=== PATIENT | male | born 1975 | race Caucasian/White ===

== ENCOUNTER 2016-11-01 14:29 | Outpatient (CLI) ==
[2016-11-01 15:04] LABS: BASOPHILS # (AUTO) 0.1 K/uL (0-0.2); BASOPHILS % (AUTO) 1.1 % (0.0-3.0); EOSINOPHILS # (AUTO) 0.6 K/ul (0.0-0.7); EOSINOPHILS % (AUTO) 4.9 % (0.0-7.0); HEMATOCRIT 42.5 % (42.0-52.0); HEMOGLOBIN 14.5 g/dl (14.0-18.0); IMMATURE GRANULOCYTE % (AUTO) 0.3 % (0.0-5.0); LYMPHOCYTES % (AUTO) 34.9 (10.0-50.0); MEAN CORPUSCULAR HEMOGLOBIN 31.5 pg (27.0-31.0); MEAN CORPUSCULAR HGB CONC 34.1 (31.8-35.4); MEAN CORPUSCULAR VOLUME 92.4 fl (80.0-94.0); MONOCYTES # (AUTO) 0.8 K/uL (0.4-2.0); MONOCYTES % (AUTO) 7.3 (0-10); NEUTROPHILS # (AUTO) 5.9 K/ul (2.0-6.9); NEUTROPHILS % (AUTO) 51.5; PLATELET COUNT 244 10^3/uL (140-440); WHITE BLOOD COUNT 11.36 K/ul (4.2-10.2)
--- NOTE | 2016-11-01 15:25 | DI ---
Two radiographic images of the chest. Comparison: None available. Reason for study: Shortness of breath. FINDINGS: No pneumothorax, pleural effusion, or focal consolidation. The cardiac silhouette is wit hin normal limits. 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 Impression: No acute cardiopulmonary findings.
[2016-11-01 15:42] LABS: ALBUMIN 3.7 g/dL (3.4-5.0); ALBUMIN/GLOBULIN RATIO 0.97; ANION GAP 14.4; BILIRUBIN,TOTAL 0.22 mg/dL (0.00-1.20); BUN/CREATININE RATIO 21.05; CALCIUM 9.3 mg/dL (8.2-10.2); CHOL/HDL RATIO 6.6 (4.5-6.4); CREATININE 0.95 mg/dL (0.60-1.10); POTASSIUM 4.4 mmol/L (3.5-5.1); TOTAL PROTEIN 7.5 g/dL (6.4-8.2)
== END 2016-11-01 14:30 | disposition home or self-care (01) ==
LOC: CAR 14:29
PROVIDERS: ATTEND Internal Medicine
DX: R05 Cough (principal); R06.02 Shortness of breath; E78.5 Hyperlipidemia, unspecified; I10 Essential (primary) hypertension
CPT/HCPCS: 36415; 80053; 80061; 83036; 84443; 85025; 93005; 93010

== ENCOUNTER 2017-05-23 09:34 | Outpatient (CLI) ==
[2017-05-23 09:46] LABS: BASOPHILS # (AUTO) 0.1 K/uL (0-0.2); BASOPHILS % (AUTO) 1.2 % (0.0-3.0); EOSINOPHILS # (AUTO) 0.5 K/ul (0.0-0.7); EOSINOPHILS % (AUTO) 5.4 % (0.0-7.0); HEMATOCRIT 43.4 % (42.0-52.0); HEMOGLOBIN 14.8 g/dl (14.0-18.0); IMMATURE GRANULOCYTE % (AUTO) 0.2 % (0.0-5.0); LYMPHOCYTES # (AUTO) 3.1 K/uL (0.60-3.4); LYMPHOCYTES % (AUTO) 34.3 (10.0-50.0); MEAN CORPUSCULAR HEMOGLOBIN 31.3 pg (27.0-31.0); MEAN CORPUSCULAR HGB CONC 34.1 (31.8-35.4); MEAN CORPUSCULAR VOLUME 91.8 fl (80.0-94.0); MONOCYTES # (AUTO) 0.6 K/uL (0.4-2.0); NEUTROPHILS # (AUTO) 4.6 K/ul (2.0-6.9); NEUTROPHILS % (AUTO) 51.9; PLATELET COUNT 224 10^3/uL (140-440); RED BLOOD COUNT 4.73 10^6/ul (4.70-6.10); WHITE BLOOD COUNT 8.89 K/ul (4.2-10.2)
[2017-05-23 10:27] LABS: ALBUMIN 3.8 g/dL (3.4-5.0); ALBUMIN/GLOBULIN RATIO 0.97; ANION GAP 12.2; BILIRUBIN,TOTAL 0.41 mg/dL (0.00-1.20); BUN/CREATININE RATIO 17.17; CALCIUM 9.7 mg/dL (8.2-10.2); CHOL/HDL RATIO 5.6 (4.5-6.4); CREATININE 0.99 mg/dL (0.60-1.10); POTASSIUM 4.2 mmol/L (3.5-5.1); TOTAL PROTEIN 7.7 g/dL (6.4-8.2)
== END 2017-05-23 09:35 | disposition home or self-care (01) ==
LOC: LAB 09:34
PROVIDERS: ATTEND Internal Medicine
DX: E78.5 Hyperlipidemia, unspecified (principal); E66.9 Obesity, unspecified
CPT/HCPCS: 36415; 80053; 80061; 83036; 84443; 85025

== ENCOUNTER 2017-11-28 16:19 | Outpatient (CLI) | END 2017-11-28 16:20 | disposition home or self-care (01) | LOC: LAB 16:19 | PROVIDERS: ATTEND Internal Medicine | DX: E78.5 Hyperlipidemia, unspecified (principal); E66.9 Obesity, unspecified; Z12.5 Encounter for screening for malignant neoplasm of prostate | CPT/HCPCS: 36415; 80053; 80061; 83036; 84443; 85025 ==